=== PATIENT | male | born 1950 | race Caucasian/White ===

== ENCOUNTER 2017-07-06 21:21 | Emergency (ER) | payer MEDICARE, OTHER ==
[2017-07-06] MEDS ORDERED: SODIUM CHLORIDE 0.9% 500 ML BAG IV* (21:31)
[2017-07-06 21:59] LABS: ADD MAN DIFF? NO
[2017-07-06 22:02] LABS: WHITE BLOOD COUNT 8.4 10^3/ul (4.8-10.8)
[2017-07-06 22:02] LABS: BASOPHIL # 0.1 10^3/ul (0.0-0.1); BASOPHILS % 0.8 % (0.0-2.0); EOSINOPHILS # 0.1 10^3/ul (0.0-0.5); EOSINOPHILS % 1.5 % (0.0-7.0); HEMATOCRIT 42.1 % (42.0-52.0); HEMOGLOBIN 14.6 g/dl (14.0-18.0); LYMPHOCYTES # 4.2 10^3/ul (0.8-2.9); LYMPHOCYTES % 50.1 % (15.0-51.0); MEAN CORPUSCULAR HEMOGLOBIN 31.9 pg (29.0-33.0); MEAN CORPUSCULAR HGB CONC 34.7 g/dl (32.0-37.0); MEAN CORPUSCULAR VOLUME 92.1 fl (82.0-101.0); MEAN PLATELET VOLUME 10.1 fl (7.4-10.4); MONOCYTE # 0.8 10^3/ul (0.3-0.9); MONOCYTES % 9.4 % (0.0-11.0); NEUTROPHIL # 3.2 10^3/ul (1.6-7.5); NEUTROPHILS % 37.5 % (39.0-77.0); PLATELET COUNT 244 10^3/UL (140-415); RED BLOOD COUNT 4.57 10^6/ul (4.70-6.10); RED CELL DISTRIBUTION WIDTH 12.9 % (11.5-14.5)
[2017-07-06 22:15] LABS: AADO2 Arterial 77.5 mmHg (7.0-24.0); Allen Test ACCEPTAB; Arterial Blood Gas Oxygen Sat 99.7 mmHG (95.0-98.0); Arterial COHb 0 % (0.0-3.0); Arterial Fraction of Oxyhgb 99.3 % (93.0-99.0); Arterial HCO3 17.9 mmol/L (22.0-26.0); Arterial MetHb 0.4 % (0.0-1.5); Arterial Total Hemglobin 15.4 g/dl (12.0-18.0); Arterial pCO2 25.9 mmhg (35-45); MODE VENT - AC/VC+; Site Left Radial
[2017-07-06 22:21] LABS: ALANINE AMINOTRANSFERASE 40 IU/L (13-69); ALBUMIN 4.4 g/dl (3.3-4.9); ALBUMIN/GLOBULIN RATIO 1.33; ALKALINE PHOSPHATASE 77 IU/L (42-121); ANION GAP 22 (8-16); ASPARTATE AMINO TRANSFERASE 65 IU/L (15-46); BILIRUBIN,INDIRECT 0.2 mg/dl (0-1.1); BILIRUBIN,TOTAL 0.2 mg/dl (0.2-1.3); BLOOD UREA NITROGEN 16 mg/dl (7-20); CALCIUM 8.6 mg/dl (8.4-10.2); CARBON DIOXIDE 20 mmol/L (21-31); CHLORIDE 103 mmol/L (97-110); GLUCOSE 226 mg/dl (70-220); INR 1.01; MAGNESIUM 2.2 mg/dl (1.7-2.5); PHOSPHORUS 7.5 mg/dl (2.5-4.9); POTASSIUM 3.5 mmol/L (3.5-5.1); PROTIME 13.4 Sec (11.9-14.9); SODIUM 141 mmol/L (135-144); TOTAL PROTEIN 7.7 g/dl (6.1-8.1)
[2017-07-06 22:22] LABS: PARTIAL THROMBOPLASTIN TIME 33.2 Sec (25.0-35.0)
[2017-07-06] MEDS: FENTAnyl 50 MCG/ML VIAL IV (22:24)
[2017-07-06 22:26] LABS: ADD UMIC YES; UR AMORPHOUS CRYSTAL MODERATE /HPF (NONE SEEN); UR ASCORBIC ACID NEGATIVE (NEGATIVE); UR BILIRUBIN (Dip) NEGATIVE (NEGATIVE); UR BLOOD (Dip) NEGATIVE (NEGATIVE); UR CLARITY CLOUDY (CLEAR); UR COLOR YELLOW (YELLOW); UR GLUCOSE (Dip) 3+ mg/dL (NEGATIVE); UR KETONES (Dip) NEGATIVE (NEGATIVE); UR LEUKOCYTE ESTERASE (Dip) NEGATIVE Leu/ul (NEGATIVE); UR NITRITE (Dip) NEGATIVE (NEGATIVE); UR RBC 1 /HPF (0-5); UR SPECIFIC GRAVITY (Dip) 1.011 (1.003-1.030); UR TOTAL PROTEIN (Dip) 3+ mg/dl (NEGATIVE); UR UROBILINOGEN (Dip) NEGATIVE (NEGATIVE); UR WBC 5 /HPF (0-5)
[2017-07-06 22:30] LABS: ACETAMINOPHEN < 10.0 ug/ml (10.0-30.0); ETHANOL < 10.0 mg/dl; SALICYLATE < 1.0 mg/dl (5.0-30.0)
[2017-07-06 22:31] LABS: TROPONIN-I 0.043 ng/ml (0.000-0.120)
[2017-07-06 22:36] LABS: AMPHETAMINE/METHAMPHETAMINE Negative (NEGATIVE); BARBITURATES Negative (NEGATIVE); BENZODIAZEPINES Negative (NEGATIVE); CANNABINOIDS Negative (NEGATIVE); COCAINE Negative (NEGATIVE); OPIATES Negative (NEGATIVE)
[2017-07-06] MEDS ORDERED: IODIXANOL LOCM 100 ML BTL (22:53)
[2017-07-06] MEDS: SOD CHLORIDE 0.9% 100 ML (22:53)
[2017-07-06] MEDS: MIDAZOLAM (DRIP) 50 mg/50 mL 50 ML IV (22:57)
[2017-07-06] MEDS: SOD CHLORIDE 0.9% 1,000 ML IV (22:57)
[2017-07-06 23:06] LABS: LACTIC ACID 3.5 mmol/L (0.5-2.0)
[2017-07-06] MEDS ORDERED: SOD CHLORIDE 0.9% 1,000 ML IV (23:28)
[2017-07-06] MEDS: LABETALOL HCL 20MG INJ IV (23:28)
[2017-07-06] MEDS ORDERED: IPRATROPIUM (HFA) 12.9 GM INHALER INH (23:30)
[2017-07-06] MEDS ORDERED: ALBUTEROL HFA 8 GM INHALER INH (23:30)
[2017-07-06] MEDS ORDERED: ACETAMINOPHEN 650MG/20.3ML CUP PO (23:30)
[2017-07-06] MEDS: VECURONIUM 100 MG in DEXTROSE 5% 100 ML IV (23:33)
[2017-07-07] MEDS ORDERED: SOD CHLORIDE 0.9% 100 ML (00:14)
[2017-07-07] MEDS ORDERED: IOHEXOL 350MG/ML 50 ML BTL (00:15)
[2017-07-07] MEDS: niCARdipine-NS 0.1MG/ML DRIP 200 ML IV ×2 (00:17→03:26)
[2017-07-07] MEDS: IOHEXOL 100 ML (01:03)
[2017-07-07 01:08] LABS: LACTIC ACID 2.2 mmol/L (0.5-2.0)
[2017-07-07] MEDS ORDERED: MIDAZOLAM (DRIP) 50 mg/50 mL 50 ML IV (02:30)
[2017-07-07] MEDS ORDERED: PANTOPRAZOLE 40 MG INJ IV (06:00)
== END 2017-07-07 04:05 | disposition short-term general hospital (02) ==
LOC: E/R 07-07 04:05
DX: I46.9 Cardiac arrest, cause unspecified (principal); N28.9 Disorder of kidney and ureter, unspecified; I60.9 Nontraumatic subarachnoid hemorrhage, unspecified; E87.2 Acidosis; J96.00 Acute respiratory failure, unspecified whether with hypoxia or hypercapnia; I10 Essential (primary) hypertension; R40.2112 Coma scale, eyes open, never, at arrival to emergency department; R40.2212 Coma scale, best verbal response, none, at arrival to emergency department; R40.2312 Coma scale, best motor response, none, at arrival to emergency department; Z85.828 Personal history of other malignant neoplasm of skin
CPT/HCPCS: 31500; 36415; 36600; 70450; 70496; 70498; 71045; 71275; 72125; 76937; 80053; 80306; 80307; 81001; 82803; 82962; 83605; 83735; 84100; 84484; 85025; 85610; 85730; 87040; 93005; 94002; 94003; 96361; 96365; 96366; 96375; 96376; 99291-25